=== PATIENT | male | born 1945 | race Native Hawaiian/Other Pacific Islander ===

== ENCOUNTER 2017-01-09 06:11 | Outpatient (CLI) | payer OTHER | END 2017-01-09 19:57 | disposition home or self-care (01) | LOC: LABW 06:11 | PROVIDERS: Specialist | DX: I10 Essential (primary) hypertension (principal); R06.02 Shortness of breath; E78.4 Other hyperlipidemia; I25.10 Atherosclerotic heart disease of native coronary artery without angina pectoris; Z79.899 Other long term (current) drug therapy; Z51.81 Encounter for therapeutic drug level monitoring | CPT/HCPCS: 36415; 80053; 80061 ==

== ENCOUNTER 2017-02-12 05:55 | Outpatient (CLI) | payer OTHER ==
[2017-02-12 06:44] LABS: POTASSIUM 4.3 mmol/L (3.6-5.2)
== END 2017-02-12 06:55 | disposition home or self-care (01) ==
LOC: LABW 05:55
PROVIDERS: Specialist
DX: I10 Essential (primary) hypertension (principal); E78.4 Other hyperlipidemia; I25.10 Atherosclerotic heart disease of native coronary artery without angina pectoris; Z79.899 Other long term (current) drug therapy; Z51.81 Encounter for therapeutic drug level monitoring
CPT/HCPCS: 36415; 80048

== ENCOUNTER 2017-02-26 06:45 | Outpatient (CLI) | payer OTHER | END 2017-02-26 19:21 | disposition home or self-care (01) | LOC: LAB 06:45 | PROVIDERS: Specialist | DX: R60.9 Edema, unspecified (principal) | CPT/HCPCS: 36415; 80048 ==